=== PATIENT | male | born 1990 | race Caucasian/White ===

== ENCOUNTER 2020-04-04 06:47 | Emergency (ER) | payer OTHER ==
[2020-04-04 07:06] VITALS: BP 152/89
--- NOTE | 2020-04-04 07:14 | ED Physician Documentation ---
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 He states that since moving up here from [place] about 8 months ago he had mild anxiety. Its not keeping him from sleeping. He denies SI or HI. He does not really have panic attacks. He just feels mildly anxious. He like to talk to somebody. He is not interested in medications for this. Review of Systems Constitutional: reports: Reviewed and negative Throat: reports: Reviewed and negative Cardiac: reports: Reviewed and negative Respiratory: reports: Reviewed and negative PD PAST MEDICAL HISTORY - Present Medications Home Medications: Ambulatory Orders Medication Instructions Recorded Confirmed No Known Home Medications 04/04/20 04/04/20 - Allergies Allergies/Adverse Reactions: Allergies Allergy/AdvReac Type Severity Reaction Status Date / Time No Known Drug Allergies Allergy Verified 04/04/20 07:30 PD ED PE NORMAL - Vitals Vital signs reviewed: Yes - General General: Alert and oriented X 3, No acute distress - Neck Neck: Supple, no meningeal sign - Derm Derm: Normal color, Warm and dry - Neuro Neuro: Alert and oriented X 3, Normal speech - Psych Psych: Normal mood, Normal affect Results - Vitals Vitals: Vital Signs - 24 hr 04/04/20 06:49 Temperature 36.3 C L Heart Rate 102 H Respiratory 16 Rate Blood Pressure 152/89 H O2 Saturation 100 Oxygen O2 Source Room air PD MEDICAL DECISION MAKING - ED course ED course: 29-year-old gentleman with mild anxiety. Seen by the social human services assistants and resources were given. He declined medications. Departure - Departure Disposition: 01 Home, Self Care Clinical Impression: Anxiety Condition: Good Record reviewed to determine appropriate education?: Yes Instructions: Anxiety Disorder Comments: Follow the instructions of the social human services assistants with regard to setting up counseling. Return for new or worsening symptoms.
== END 2020-04-04 09:05 | disposition home or self-care (01) ==
LOC: ED 06:47
DX: F41.9 Anxiety disorder, unspecified (principal)
CPT/HCPCS: 99283